=== PATIENT | female | born 1965 | race Caucasian/White ===

== ENCOUNTER 2016-07-04 14:03 | Emergency (ER) | payer BC ==
[~2016-07-04] VITALS: Ht 162.6 cm; Wt 70.3 kg
[2016-07-04 14:06] VITALS: BP 133/78
[2016-07-04] MEDS ORDERED: TREXIMET 10-601 EACH PO (14:22)
== END 2016-07-04 14:26 | disposition home or self-care (01) ==
LOC: ER 14:03
DX: S80.11XA Contusion of right lower leg, initial encounter (principal); X58.XXXA Exposure to other specified factors, initial encounter; Y93.89 Activity, other specified; Y92.89 Other specified places as the place of occurrence of the external cause; Y99.9 Unspecified external cause status

== ENCOUNTER → 2016-09-01 | Outpatient (CLI) | payer BC ==
[~2016-09-01] MED LIST: TREXIMET 10-601 EACH PO
== END ==
LOC: RAD 02:58
DX: Z12.31 Encounter for screening mammogram for malignant neoplasm of breast (principal)

== ENCOUNTER → 2018-02-02 | Outpatient (CLI) | payer BC | LOC: RAD 02:48 | DX: Z12.31 Encounter for screening mammogram for malignant neoplasm of breast (principal) ==

== ENCOUNTER 2019-02-19 10:18 | Emergency (ER) | payer BC ==
[~2019-02-19] VITALS: Ht 162.6 cm; Wt 71.2 kg
[2019-02-19 10:19] VITALS: BP 133/81
[2019-02-19] MEDS ORDERED: TOPROL XL50 MG PO (11:19)
[2019-02-19] MEDS ORDERED: AUGMENTIN 875-1 EACH PO (11:38)
[2019-02-19] MEDS ORDERED: MOBIC15 MG PO (11:38)
== END 2019-02-19 11:39 | disposition home or self-care (01) ==
LOC: ER 10:18
DX: S61.452A Open bite of left hand, initial encounter (principal); G43.909 Migraine, unspecified, not intractable, without status migrainosus; Z88.6 Allergy status to analgesic agent; W55.01XA Bitten by cat, initial encounter; Y93.89 Activity, other specified; Y92.89 Other specified places as the place of occurrence of the external cause; Y99.8 Other external cause status

== ENCOUNTER → 2019-02-22 | Outpatient (CLI) | payer OTHER ==
[~2019-02-22] MED LIST changes: +AUGMENTIN 875-1 EACH PO; +MOBIC15 MG PO; +TOPROL XL50 MG PO
== END ==
LOC: CAT 09:44
DX: Z13.6 Encounter for screening for cardiovascular disorders (principal); E78.00 Pure hypercholesterolemia, unspecified; I25.10 Atherosclerotic heart disease of native coronary artery without angina pectoris

== ENCOUNTER → 2020-01-23 | Outpatient (CLI) | payer BC | LOC: BC 09:09 | PROVIDERS: ATTEND Obstetrics & Gynecology | DX: Z12.31 Encounter for screening mammogram for malignant neoplasm of breast (principal) ==